=== PATIENT | male | born 1960 | race Caucasian/White ===

== ENCOUNTER 2023-01-06 15:30 | Emergency (ER) | payer OTHER ==
[~2023-01-06] VITALS: Ht 167.6 cm; Wt 90.7 kg
--- NOTE | 2023-01-06 15:49 | NUR ---
PATIENT AMBULATED TO ER BED 12
[2023-01-06 15:50] VITALS: BP 156/109; PULSE 118; RESP 22; TEMP 100.1; O2SAT 97
[2023-01-06] MEDS ORDERED: KETOROLAC 60 MG/2 ML VIAL IM ONE (16:10)
--- NOTE | 2023-01-06 17:03 | NUR ---
62 yo/m presents to ED w c/o L side chest pain 8/10 ache non rad, + sob s/p slip on dirt and fall yesterday onto L side chest at 0500 yesterday. denies fevers, n/v/d, or loc. pmh: htn, dm, neuropathy allergies: denies
[2023-01-06] MEDS ORDERED: ACET-8905 PO (17:49)
--- NOTE | 2023-01-06 17:55 | NUR ---
PT DENIES ONGOING SOB AND REPORTS CHEST PAIN IMPROVEMENT ONLY MILD.
[2023-01-06 18:00] VITALS: BP 157/73; PULSE 96; RESP 18; TEMP 98.5; O2SAT 100
== END 2023-01-06 18:00 | disposition home or self-care (01) ==
LOC: MED 15:30
DX: S20.212A Contusion of left front wall of thorax, initial encounter (principal); E11.9 Type 2 diabetes mellitus without complications; I10 Essential (primary) hypertension; F17.210 Nicotine dependence, cigarettes, uncomplicated; Z72.89 Other problems related to lifestyle; Z79.4 Long term (current) use of insulin; Z79.899 Other long term (current) drug therapy; X58.XXXA Exposure to other specified factors, initial encounter; Y93.89 Activity, other specified; Y92.89 Other specified places as the place of occurrence of the external cause; Y99.8 Other external cause status
CPT/HCPCS: 71101; 93005; 96372; 99285; J1885

== ENCOUNTER 2024-01-08 07:38 | Inpatient (IN) | payer OTHER ==
[~2024-01-08] VITALS: Ht 165.1 cm; Wt 36.3 kg
[~2024-01-08 07:38] MED LIST: ACET-8905 PO
[2024-01-08 07:45] VITALS: BP 154/87; PULSE 88; RESP 20; TEMP 97; O2SAT 96
[2024-01-08 08:36] LABS: BASOPHILS % (AUTO) 0.3 % (0.0-2.0); EOSINOPHILS % (AUTO) 0.2 % (0.0-4.0); HEMATOCRIT 39.2 % (36-52); HEMOGLOBIN 13.8 g/dL (12.0-18.0); LYMPHOCYTES # (AUTO) 0.8 K/uL (2.0-11.5); MEAN CORPUSCULAR HEMOGLOBIN 35 pg (27-31); MEAN CORPUSCULAR HGB CONC 35 g/dL (33-37); MEAN CORPUSCULAR VOLUME 99.4 fL (80-94); MONOCYTES # (AUTO) 0.6 K/uL (0.8-1.0); MONOCYTES % (AUTO) 10.2 % (1.7-9.3); NEUTROPHILS # (AUTO) 4.3 K/uL (1.8-7.7); NEUTROPHILS % (AUTO) 75.3 % (42.2-75.2); PLATELET COUNT (AUTO) 259 K/uL (140-450); RED BLOOD CELL COUNT(AUTO) 3.94 MIL/uL (4.20-6.10); RED CELL DISTRIBUTION WIDTH 13.2 % (11.6-13.7); WHITE BLOOD COUNT (AUTO) 5.7 K/uL (4.8-10.8)
[2024-01-08] MEDS: NACL 0.9% 2,000 ML IV ONE (08:38)
[2024-01-08 08:57] LABS: ALANINE AMINOTRANSFERASE 38 U/L (12-78); ALBUMIN 4.1 g/dL (3.4-5.0); ALKALINE PHOSPHATASE 79 U/L (50-136); ANION GAP 18.1 (8-16); ASPARTATE AMINOTRANSFERASE 23 U/L (15-37); CALCIUM 8.2 mg/dL (8.5-10.1); CARBON DIOXIDE 24.2 mmol/L (21-32); CHLORIDE 93 mmol/L (98-107); CREATININE 0.8 mg/dL (0.6-1.3); GFR ARICAN-AMERICAN 126 mL/min (>90); GFR NON ARICAN-AMERICAN 104 mL/min (>90); GLUCOSE 87 mg/dL (74-106); LIPASE 72 U/L (16-77); POTASSIUM 3.3 mmol/L (3.5-5.1); SODIUM SERUM 132 mmol/L (136-145); TOTAL BILIRUBIN 0.3 mg/dL (0.0-1.0); TOTAL PROTEIN, SERUM 7.7 g/dL (6.4-8.2); UREA NITROGEN, BLOOD 15 mg/dL (7-18)
[2024-01-08] MEDS: THIAMINE 200 MG/2 ML VIAL IV ONE (10:20)
[2024-01-08] MEDS: MULTIVITAMIN/MINERALS 1 TAB PO ONE (10:41)
[2024-01-08] MEDS ORDERED: GLIP5TAB22 PO (11:50)
[2024-01-08] MEDS ORDERED: LISI10TA30 PO (11:50)
[2024-01-08] MEDS: LORazepam 2 MG/ML VIAL IVP ONE (13:12)
[2024-01-08] MEDS ORDERED: ONDANSETRON 4 MG/2 ML VIAL IVP PRN (13:50)
[2024-01-08] MEDS ORDERED: KCL 20 MEQ IN 100 mL PREMIX 200 ML IV PRN (13:50)
[2024-01-08] MEDS ORDERED: ACETAMINOPHEN 325 MG TAB PO PRN (13:50)
[2024-01-08] MEDS ORDERED: MAG SULF 2000 MG/WATER PREMIX 50 ML IV PRN (13:50)
[2024-01-08] MEDS: NACL 0.9% 1,000 ML IV SCH (14:28)
[2024-01-08 14:30] LABS: THYROID STIMULATING HORMONE 6.23 uIU/mL (0.34-3.74)
[2024-01-08 16:00] VITALS: PULSE 76; RESP 20; O2SAT 96
[2024-01-08] MEDS: POTASSIUM CHLORIDE 10 MEQ TABER PO PRN (17:53)
[2024-01-08 20:00] VITALS: BP 150/82; PULSE 78; PULSE 94; RESP 20; TEMP 97.5; O2SAT 96
[2024-01-08] MEDS: MEDS-TO-BEDS MC SCH (20:15)
[2024-01-08] MEDS: ZOLPIDEM 10 MG TAB PO PRN (21:25)
[2024-01-09] VITALS: BP 148/72; PULSE 74; RESP 18; TEMP 97.5; O2SAT 98
[2024-01-09 04:00] VITALS: BP 159/93; PULSE 80; RESP 18; TEMP 98.1; O2SAT 98
[2024-01-09 05:46] LABS: BASOPHILS % (AUTO) 0.3 % (0.0-2.0); EOSINOPHILS % (AUTO) 0.5 % (0.0-4.0); HEMATOCRIT 35.5 % (36-52); HEMOGLOBIN 12.4 g/dL (12.0-18.0); LYMPHOCYTES # (AUTO) 0.9 K/uL (2.0-11.5); LYMPHOCYTES % (AUTO) 14.8 % (20.5-51.1); MEAN CORPUSCULAR HEMOGLOBIN 35 pg (27-31); MEAN CORPUSCULAR HGB CONC 35 g/dL (33-37); MEAN CORPUSCULAR VOLUME 100.3 fL (80-94); MONOCYTES # (AUTO) 0.8 K/uL (0.8-1.0); MONOCYTES % (AUTO) 12.9 % (1.7-9.3); NEUTROPHILS # (AUTO) 4.4 K/uL (1.8-7.7); NEUTROPHILS % (AUTO) 71.5 % (42.2-75.2); PLATELET COUNT (AUTO) 204 K/uL (140-450); RED BLOOD CELL COUNT(AUTO) 3.54 MIL/uL (4.20-6.10); RED CELL DISTRIBUTION WIDTH 13.4 % (11.6-13.7); WHITE BLOOD COUNT (AUTO) 6.1 K/uL (4.8-10.8)
[2024-01-09 06:11] LABS: ANION GAP 13.6 (8-16); CALCIUM 7.8 mg/dL (8.5-10.1); CARBON DIOXIDE 23.8 mmol/L (21-32); CREATININE 0.8 mg/dL (0.6-1.3); POTASSIUM 4.4 mmol/L (3.5-5.1)
[2024-01-09 06:19] LABS: MAGNESIUM 1.6 mg/dL (1.8-2.4); PHOSPHORUS 2.7 mg/dL (2.5-4.9)
[2024-01-09 08:00] VITALS: BP 145/72; PULSE 73; RESP 20; TEMP 97.1; O2SAT 97
[2024-01-09] MEDS: MULTIVITAMIN 1 TAB PO SCH (08:45)
[2024-01-09] MEDS: THIAMINE 100 MG TAB PO SCH (08:45)
[2024-01-09] MEDS: MAGNESIUM OXIDE 400 MG TAB PO PRN (08:49)
[2024-01-09 12:00] VITALS: BP 160/82; PULSE 87; RESP 20; TEMP 97; O2SAT 97
[2024-01-09] MEDS: LORazepam 2 MG/ML VIAL IM/IVP PRN (15:07)
[2024-01-09] MEDS: glipiZIDE 5 MG TAB PO SCH (17:43)
[2024-01-09] MEDS: HYDROcodone/APAP 5/325 MG 1 TAB TAB PO PRN (17:43)
[2024-01-09 17:49] VITALS: BP 143/91; PULSE 84; PULSE 87; RESP 20; TEMP 97.8; O2SAT 98
[2024-01-09 20:00] VITALS: BP 138/70; PULSE 73; PULSE 80; PULSE 96; RESP 18; RESP 20; TEMP 97.8; O2SAT 97
[2024-01-10] VITALS (7 sets, daily range): BP systolic 146–165; BP diastolic 85–93; PULSE 65–91; RESP 16–20; TEMP 97.2–98.2; O2SAT 96–99
[2024-01-10] MEDS: ZOLPIDEM 5 MG TAB PO PRN (00:31)
[2024-01-10 06:15] LABS: BASOPHILS % (AUTO) 0.4 % (0.0-2.0); EOSINOPHILS # (AUTO) 0.1 K/uL (0-0.4); EOSINOPHILS % (AUTO) 2.9 % (0.0-4.0); HEMATOCRIT 34.3 % (36-52); HEMOGLOBIN 12.1 g/dL (12.0-18.0); LYMPHOCYTES # (AUTO) 0.9 K/uL (2.0-11.5); LYMPHOCYTES % (AUTO) 22.7 % (20.5-51.1); MEAN CORPUSCULAR HEMOGLOBIN 35 pg (27-31); MEAN CORPUSCULAR HGB CONC 35 g/dL (33-37); MEAN CORPUSCULAR VOLUME 100.1 fL (80-94); MONOCYTES # (AUTO) 0.5 K/uL (0.8-1.0); MONOCYTES % (AUTO) 13.2 % (1.7-9.3); NEUTROPHILS # (AUTO) 2.4 K/uL (1.8-7.7); NEUTROPHILS % (AUTO) 60.8 % (42.2-75.2); PLATELET COUNT (AUTO) 207 K/uL (140-450); RED BLOOD CELL COUNT(AUTO) 3.43 MIL/uL (4.20-6.10)
[2024-01-10 06:22] LABS: ANION GAP 11.8 (8-16); CALCIUM 7.8 mg/dL (8.5-10.1); CARBON DIOXIDE 25.3 mmol/L (21-32); CREATININE 0.7 mg/dL (0.6-1.3); POTASSIUM 4.1 mmol/L (3.5-5.1)
[2024-01-10 06:34] LABS: MAGNESIUM 1.9 mg/dL (1.8-2.4); PHOSPHORUS 2.9 mg/dL (2.5-4.9)
[2024-01-10] MEDS: lisinopriL 10 MG TAB PO SCH (09:09)
[2024-01-10] MEDS: hydrALAZINE 25 MG TAB PO SCH (17:48)
[2024-01-11 00:55] VITALS: PULSE 73
[2024-01-11 04:00] VITALS: PULSE 66
[2024-01-11 04:38] VITALS: BP 137/84; PULSE 66; RESP 18; TEMP 98.5; O2SAT 99
[2024-01-11 06:32] LABS: BASOPHILS % (AUTO) 0.6 % (0.0-2.0); EOSINOPHILS # (AUTO) 0.1 K/uL (0-0.4); HEMATOCRIT 34.5 % (36-52); HEMOGLOBIN 12.2 g/dL (12.0-18.0); LYMPHOCYTES # (AUTO) 0.9 K/uL (2.0-11.5); LYMPHOCYTES % (AUTO) 18.1 % (20.5-51.1); MEAN CORPUSCULAR HEMOGLOBIN 35 pg (27-31); MEAN CORPUSCULAR HGB CONC 35 g/dL (33-37); MEAN CORPUSCULAR VOLUME 99.8 fL (80-94); MONOCYTES # (AUTO) 0.5 K/uL (0.8-1.0); MONOCYTES % (AUTO) 11.3 % (1.7-9.3); NEUTROPHILS # (AUTO) 3.2 K/uL (1.8-7.7); PLATELET COUNT (AUTO) 199 K/uL (140-450); RED BLOOD CELL COUNT(AUTO) 3.46 MIL/uL (4.20-6.10); RED CELL DISTRIBUTION WIDTH 13.2 % (11.6-13.7); WHITE BLOOD COUNT (AUTO) 4.8 K/uL (4.8-10.8)
[2024-01-11 07:10] LABS: ANION GAP 12.4 (8-16); CARBON DIOXIDE 24.6 mmol/L (21-32); CREATININE 0.7 mg/dL (0.6-1.3)
[2024-01-11 07:35] LABS: MAGNESIUM 1.8 mg/dL (1.8-2.4); PHOSPHORUS 3.7 mg/dL (2.5-4.9)
[2024-01-11 08:00] VITALS: BP 154/80; PULSE 65; PULSE 66; PULSE 91; RESP 18; TEMP 97; O2SAT 97; O2SAT 99
[2024-01-11 10:00] VITALS: BP 154/80; PULSE 66; RESP 18; TEMP 97
== END 2024-01-11 10:35 | disposition home or self-care (01) | DRG 347 ==
LOC: MED 07:38 → MMU 13:46 → MTU 14:41
PROVIDERS: ADMIT Hospitalist; ATTEND Hospitalist
DX: M48.02 Spinal stenosis, cervical region (principal); E44.1 Mild protein-calorie malnutrition; E11.9 Type 2 diabetes mellitus without complications; I10 Essential (primary) hypertension; F10.90 Alcohol use, unspecified, uncomplicated; Z79.899 Other long term (current) drug therapy; Z68.1 Body mass index [BMI] 19.9 or less, adult
CPT/HCPCS: 36415; 70450; 80048; 80053; 82390; 82525; 82607; 83690; 83735; 84100; 84439; 84443; 84484; 85025; 85651; 86140; 87081; 93005; 96361; 96374; 96375; 97116; 97163-GP; 99285; J1644; J2060; J3411